=== PATIENT | female | born 1995 | race Caucasian/White ===

== ENCOUNTER 2017-05-12 23:17 | Emergency (ER) | payer OTHER ==
[~2017-05-12] VITALS: Ht 162.6 cm; Wt 62.0 kg
[2017-05-13 00:24] LABS: HEMATOCRIT 40.9 % (36.0-46.0); MCH 30.2 PG (29.0-34.0); MCHC 34.2 G/DL (30.0-36.0); MCV 88.3 FL (83-99); RBC DIS.WIDTH-CV 11.9 % (11.8-14.6); RBC DIS.WIDTH-SD 38.2 % (39-53); RED BLOOD COUNT 4.63 M/uL (3.80-5.20); WHITE BLOOD COUNT 11.1 K/uL (4.1-10.2)
[2017-05-13 00:34] LABS: CHLORIDE 105 mEq/L (99-109); POTASSIUM 3.5 mEq/L (3.7-5.4); SODIUM 138 mEq/L (136-147)
[2017-05-13 00:36] LABS: GLUCOSE 97 mg/dL (70-99)
[2017-05-13 00:37] LABS: ANION GAP 9 MEQ/L (2-14)
[2017-05-13 00:39] LABS: GFR ESTIMATE (CALCULATED) > 59 mL/min/
[2017-05-13 00:40] LABS: UREA NITROGEN (BUN) 14 mg/dL (9-23)
[2017-05-13 00:42] LABS: CREATINE KINASE 67 IU/L (1-294)
[2017-05-13 00:48] LABS: QUANTITATIVE HCG < 4.0 MIU/ML
[2017-05-13 01:29] LABS: MEAN PLAT.VOLUME 10.7 uM^3 (9.5-12.4); PLAT.SUFFICIENCY ADEQUATE; PLATELET COUNT 234 K/uL (156-360)
[2017-05-13 01:56] VITALS: BP 125/75
== END 2017-05-13 01:58 | disposition home or self-care (01) ==
LOC: EME 23:17
PROVIDERS: Physician Assistant
DX: R55 Syncope and collapse (principal); Z88.0 Allergy status to penicillin; Z87.891 Personal history of nicotine dependence
CPT/HCPCS: 70450; 80048; 82550; 84702; 85027; 93005; 99281; 99284; J7030